=== PATIENT | female | born 1955 ===

== ENCOUNTER 2020-01-16 09:32 | Day surgery (SDC) | payer OTHER ==
[~2020-01-16] VITALS: Ht 165.1 cm; Wt 52.2 kg
[~2020-01-16 09:32] MED LIST: ASCO500; ATOR20 PO; Advil200 M1 PO; B Complex1 EAC2; BIEST/PROGEST TOP; CRANBERRY250 MG; LEVSOD75 PO; VITAMIN D-32000 UNIT
== END 2020-01-16 11:51 | disposition home or self-care (01) ==
LOC: ORSCSDS 09:32
PROVIDERS: Surgery
PROC: 0DJD8ZZ Inspection of Lower Intestinal Tract, Via Natural or Artificial Opening Endoscopic (ICD-10-PCS; principal; 2020-01-16 11:00)
DX: Z12.11 Encounter for screening for malignant neoplasm of colon (principal); Z86.010 Personal history of colon polyps; Z79.899 Other long term (current) drug therapy
CPT/HCPCS: J2704; J7120